=== PATIENT | male | born 1990 | race Caucasian/White ===

== ENCOUNTER 2018-05-29 05:17 | Emergency (ER) | payer SELFPAY ==
[~2018-05-29] VITALS: Ht 170.2 cm; Wt 110.0 kg
[~2018-05-29 05:17] MED LIST: ALBU8.5H5 INH; BENZ-6 PO; DICY10CA40 PO; HYDR-3498 PO; NITR-58 PO; PROM6.25 PO
[2018-05-29 05:45] VITALS: BP 128/80; PULSE 89; RESP 20; Ht 170.2 cm; Wt 110.0 kg
[2018-05-29] MEDS ORDERED: BENZ-6 PO (07:23)
[2018-05-29] MEDS ORDERED: ALBU8.5H8 INH (07:23)
[2018-05-29] MEDS ORDERED: PROM6.2515 PO (07:23)
[2018-05-29] MEDS ORDERED: AZIT250T PO (07:23)
--- NOTE | 2018-05-29 07:33 | ERD ---
ER Documentation Chief Complaint Chief Complaint Dry cough x5 days, tight chested, Back pain w/coughing. HPI 27-year-old male presenting with dry cough times 5 days. Patient feels that he has chest tightness. He has congestion. No fevers. He has not taken medications for symptoms. Denies medical problems. NKDA. Surgical history denies. Social history smokes marijuana. ROS All systems reviewed and are negative except as per history of present illness. Medications Home Meds Active Scripts Albuterol Sulfate* (Proair HFA*) 8.5 Gm Hfa.aer.ad, 2 PUFF INH Q4, #1 INHALER Prov:LEIGHANN REINOSO PA-C 05/29/18 Benzonatate* (Tessalon Perle*) 100 Mg Capsule, 100 MG PO Q8H PRN for COUGH, #30 CAP Prov:LEIGHANN REINOSO PA-C 05/29/18 Promethazine Hcl* (Promethazine Hcl* Syrup) 6.25 Mg/5 Ml Syrup, 6.25 MG PO Q6H PRN for COUGH, #100 ML Prov:LEIGHANN REINOSO PA-C 05/29/18 Azithromycin* (Zithromax*) 250 Mg Tablet, 250 MG PO .ZPACK DIRECTED, #6 TAB TAKE 500 MG (2 TABS) THE FIRST DAY THEN 250 MG (1 TAB) DAYS 2-5 Prov:LEIGHANN REINOSO PA-C 05/29/18 Dicyclomine HCl (Dicyclomine HCl) 10 Mg Capsule, 10 MG PO QID for abdominal cramping, #20 CAP Prov:NIRMAL EGAN NP 09/06/15 Hydrocodone Bit-Acetaminophen* ([place]*) 5-325 Mg Tab, 1 TAB PO Q6 PRN for PAIN, #20 TAB Prov:NIRMAL EGAN NP 09/06/15 Benzonatate* (Tessalon Perle*) 100 Mg Capsule, 100 MG PO Q8H PRN for COUGH, #30 CAP Prov:LEIGHANN REINOSO PA-C 04/21/15 Albuterol Sulfate* (Albuterol Sulfate* HFA) 8.5 Gm Hfa.aer.ad, 1-2 PUFF INH Q4 PRN for SHORTNESS OF BREATH, #1 EA Prov:LEIGHANN REINOSO PA-C 04/21/15 Promethazine w/Codeine* (Phenergan w/Codeine* Syrup) 5 Ml Syrup, 5 ML PO Q4H PRN for COUGH, #100 ML Prov:LEIGHANN REINOSO PA-C 04/21/15 Nitrofurantoin Monohyd Macrocr* (Macrobid*) 100 Mg Capsr, 100 MG PO BID PRN for UTI for 7 Days, CAP Prov:TONIE YAO PA-C 12/07/14 Allergies Allergies: Coded Allergies: No Known Drug Allergies (Verified Allergy, Mild, 07/29/11) PMhx/Soc History of Surgery: Yes (right hand surgery) Anesthesia Reaction: No Hx Neurological Disorder: No Hx Respiratory Disorders: No Hx Cardiac Disorders: No Hx Psychiatric Problems: No Hx Miscellaneous Medical Probl: No Hx Alcohol Use: No Hx Substance Use: No Hx Tobacco Use: No FmHx Family History: No diabetes, No coronary disease, No other Physical Exam Vitals Vital Signs Date Temp Pulse Resp B/P (MAP) Pulse Ox O2 O2 Flow FiO2 Time Delivery Rate 05/29/18 89 20 128/80 96 05:45 (96) Physical Exam GENERAL: The patient is well-appearing, well-nourished, in no acute distress HEENT: Atraumatic. Conjunctivae are pink. Pupils equal, round, and reactive to light. There is no scleral icterus. Tympanic membranes clear bilaterally. Oropharynx clear. NECK: C-spine is soft and supple. There is no meningismus. There is no cervical lymphadenopathy. CHEST: Clear to auscultation bilaterally. There are no rales, wheezes or rhonchi. HEART: Regular rate and rhythm. No murmurs, clicks, rubs or gallops. Procedures/MDM DIAGNOSTIC IMAGING REPORT Patient: AKIN GONZALEZ : 1990 Age: 27 Sex: M MR #: [id number] DOS: 05/29/18 0615 Ordering MD: KACI REINOSO PA-C Location: [facility] Room/Bed: PROCEDURE: CHEST - 1 VIEW CLINICAL INDICATION: 27-year-old male with cough. TECHNIQUE: A single frontal AP portable view of the chest was performed. The images were reviewed on a PACS workstation. COMPARISON: CR CHEST 04/21/2015; CR CHEST 09/19/2007 FINDINGS: The cardiomediastinal silhouette has a normal appearance. There is mild left basilar subsegmental atelectasis. There is no evidence for focal consolidation. The pulmonary vascularity is within normal limits. There is no evidence for pneumothorax or pneumomediastinum. The osseous structures are intact. IMPRESSION: Mild left basilar subsegmental atelectasis. A superimposed infiltrate cannot be excluded. Clinical correlation is necessary. MDM: 27-year-old male presenting with cough. Patient's chest x-ray is questionable for an early pneumonia so we will treat prophylactically for antibiotics. I have low suspicion for respiratory distress or hypoxia. I have low suspicion for cardiac emergency. Patient is discharged stricter precautions and told to follow-up with primary care within 1-2 days for close evaluation. Patient is told if symptoms change or worsen to immediately return to the ER. All questions answered at discharge Departure Diagnosis: Primary Impression: Cough Condition: Stable Patient Instructions: Cough, Chronic, Uncertain Cause, (Adult) Referrals: [facility] YOU HAVE RECEIVED A MEDICAL SCREENING EXAM AND THE RESULTS INDICATE THAT YOU DO NOT HAVE A CONDITION THAT REQUIRES URGENT TREATMENT IN THE EMERGENCY DEPARTMENT. FURTHER EVALUATION AND TREATMENT OF YOUR CONDITION CAN WAIT UNTIL YOU ARE SEEN IN YOUR DOCTORS OFFICE WITHIN THE NEXT 1-2 DAYS. IT IS YOUR RESPONSIBILITY TO MAKE AN APPOINTMENT FOR FOLOW-UP CARE. IF YOU HAVE A PRIMARY DOCTOR --you should call your primary doctor and schedule an appointment IF YOU DO NOT HAVE A PRIMARY DOCTOR YOU CAN CALL OUR PHYSICIAN REFERRAL HOTLINE AT IF YOU CAN NOT AFFORD TO SEE A PHYSICIAN YOU CAN CHOSE FROM THE FOLLOWING [facility] CL[facility] [address]. [facility] [address] [facility] [address] [facility] [address] [facility] [address] [facility]. [address] Additional Instructions: FOLLOW UP WITH YOUR PRIMARY CARE PHYSICIAN TOMORROW.Return to this facility if you are not improving as expected. LEIGHANN REINOSO PA-C May 29, 2018 07:33
== END 2018-05-29 07:49 | disposition home or self-care (01) ==
LOC: FTE 05:17
DX: R05 Cough (principal)
CPT/HCPCS: 71045